=== PATIENT | female | born 1960 | race Caucasian/White ===

== ENCOUNTER 2017-09-24 11:16 | Inpatient (IN) | payer OTHER ==
[2017-09-24] MEDS ORDERED: SODIUM CHLORIDE 0.9% 2,500 ML IV STA (11:36)
[2017-09-24 11:51] LABS: BASOPHILS % (AUTO) 0.1 %; EOSINOPHILS % (AUTO) 0.4 %; HGB - HEMOGLOBIN 14.5 g/dL (12.0-16.0); LYMPHOCYTES # (AUTO) 0.1 10^3/uL (1.5-3.5); LYMPHOCYTES % (AUTO) 1.6 %; MEAN CORPUSCULAR HEMOGLOBIN 32.4 pg (27.0-31.0); MEAN CORPUSCULAR VOLUME 95.2 fL (81.0-99.0); MEAN PLATELET VOLUME 8.4 fL (7.9-10.8); MONOCYTES # (AUTO) 0.1 10^3/uL (0.0-1.0); MONOCYTES % (AUTO) 0.9 %; NEUTROPHILS # (AUTO) 5.5 10^3/uL (1.5-6.6); PLT - PLATELET COUNT 170 10^3/uL (130-450); RED BLOOD COUNT 4.49 10^6/uL (4.20-5.40); RED CELL DISTRIBUTION WIDTH 13.5 % (12.0-15.0); WHITE BLOOD COUNT 5.7 x10^3/uL (4.8-10.8)
[2017-09-24 12:00] LABS: ALBUMIN 4.3 g/dL (3.2-5.5); ALBUMIN/GLOBULIN RATIO 1.1 (1.0-2.2); CALCIUM 9.5 mg/dL (8.5-10.3); CREATININE 1.2 mg/dL (0.4-1.0); TOTAL PROTEIN 8.1 g/dL (6.7-8.2)
--- NOTE | 2017-09-24 12:40 | ED Physician Documentation ---
History of Present Illness - Stated complaint Stated Complaint: THROAT PX/VOMITING - Chief complaint Chief Complaint: Resp - Additonal information Additional information: hx from pt and SO 57 f sick for 5 days sore throat productive cough vomiting now with lethargy no fever no diarrhea no travel denies preg spouse with similar but milder sx normally quite healthy Review of Systems Constitutional: reports: Fatigue. denies: Fever Throat: reports: Sore throat Respiratory: reports: Dyspnea, Cough GI: reports: Abdominal Pain (from cough), Vomiting Musculoskeletal: reports: Back pain (from cough) Neurologic: reports: Generalized weakness, Altered mental status Endocrine: denies: Easy bruising / bleeding Immunocompromised: denies: Immunocompromised PD PAST MEDICAL HISTORY - Past Medical History Past Medical History: No - Past Surgical History Past Surgical History: Yes Ortho: Knee replacement - Allergies Allergies/Adverse Reactions: Allergies Allergy/AdvReac Type Severity Reaction Status Date / Time Sulfa (Sulfonamide Allergy Rash Verified 09/24/17 11:26 Antibiotics) - Social History Does the pt smoke?: No Smoking Status: Never smoker Does the pt drink ETOH?: Yes ETOH Use: Wine Does the pt have substance abuse?: No - Immunizations Immunizations are current?: Yes PD ED PE NORMAL - Vitals Vital signs reviewed: Yes - General General: Alert and oriented X 3 - HEENT HEENT: PERRL - Neck Neck: Supple, no meningeal sign, Other (tender cervical adenopathy no sig pain with tracheal manip) - Cardiac Cardiac: RRR - Respiratory Respiratory: Other (dec iram, coarse cough, ronchi iram) - Abdomen Abdomen: Soft, Other (mild ) - Derm Derm: Normal color - Extremities Extremities: No deformity, No edema, No calf tenderness / cord - Neuro Neuro: Alert and oriented X 3, Other (but slow to respond and sleeps between questions) Eye Opening: Spontaneous Motor: Obeys Commands Verbal: Oriented GCS Score: 15 Results - Vitals Vitals: Vital Signs - 24 hr 09/24/17 09/24/17 09/24/17 11:21 11:36 12:06 Temperature 36.9 C Heart Rate 120 H 90 93 Respiratory 28 H 20 19 Rate Blood Pressure 99/76 104/70 94/73 O2 Saturation 90 L 95 95 09/24/17 09/24/17 09/24/17 12:30 13:00 13:30 Temperature Heart Rate 81 81 Respiratory 19 17 Rate Blood Pressure 97/60 101/75 115/61 O2 Saturation 96 97 09/24/17 09/24/17 09/24/17 14:08 14:30 15:00 Temperature 37.8 C H Heart Rate 85 87 Respiratory 20 22 Rate Blood Pressure 127/61 125/66 O2 Saturation 97 90 L 09/24/17 09/24/17 09/24/17 15:25 16:45 16:55 Temperature 39.6 C H Heart Rate 89 99 Respiratory 20 27 H Rate Blood Pressure 144/69 H O2 Saturation 90 L 88 L 09/24/17 17:30 Temperature Heart Rate 93 Respiratory 27 H Rate Blood Pressure 153/75 H O2 Saturation 95 Oxygen O2 Source Nasal cannula Oxygen Flow Rate 2 - Labs Labs: Microbiology 09/24/17 12:45 Respiratory Culture - Preliminary Sputum Laboratory Tests 09/24/17 09/24/17 09/24/17 00:30 11:35 11:35 WBC 5.7 RBC 4.49 Hgb 14.5 Hct 42.8 MCV 95.2 MCH 32.4 H MCHC 34.0 RDW 13.5 Plt Count 170 MPV 8.4 Neut # (Auto) 5.5 Lymph # (Auto) 0.1 L [place] # (Auto) 0.1 Eos # (Auto) 0.0 Baso # (Auto) 0.0 Absolute Nucleated RBC 0.00 Nucleated RBC % 0.0 Sodium 135 Potassium 4.0 Chloride 98 L Carbon Dioxide 27 Anion Gap 10.0 BUN 14 Creatinine 1.2 H Estimated GFR (MDRD) 46 L Glucose 179 H Lactic Acid Calcium 9.5 Total Bilirubin 1.0 AST 35 ALT 22 Alkaline Phosphatase 43 Total Protein 8.1 Albumin 4.3 Globulin 3.8 Albumin/Globulin Ratio 1.1 Lipase 38 Urine Color Urine Clarity Urine pH Ur Specific [place] Urine Protein Urine Glucose (UA) Urine Ketones Urine Occult Blood Urine Nitrite Urine Bilirubin Urine Urobilinogen Ur Leukocyte Esterase Urine RBC Urine WBC Ur Squamous Epith Cells Urine Bacteria Ur Microscopic Review Urine Culture Comments Group A Strep Rapid Negative 09/24/17 09/24/17 11:35 16:40 WBC RBC Hgb Hct MCV MCH MCHC RDW Plt Count MPV Neut # (Auto) Lymph # (Auto) [place] # (Auto) Eos # (Auto) Baso # (Auto) Absolute Nucleated RBC Nucleated RBC % Sodium Potassium Chloride Carbon Dioxide Anion Gap BUN Creatinine Estimated GFR (MDRD) Glucose Lactic Acid 1.5 Calcium Total Bilirubin AST ALT Alkaline Phosphatase Total Protein Albumin Globulin Albumin/Globulin Ratio Lipase Urine Color YELLOW Urine Clarity CLEAR Urine pH 6.0 Ur Specific [place] 1.010 Urine Protein NEGATIVE Urine Glucose (UA) NEGATIVE Urine Ketones NEGATIVE Urine Occult Blood TRACE-INTA Urine Nitrite NEGATIVE Urine Bilirubin NEGATIVE Urine Urobilinogen 0.2 (NORMAL) Ur Leukocyte Esterase SMALL H Urine RBC 0-5 Urine WBC 6-10 H Ur Squamous Epith Cells RARE Squamous Urine Bacteria Few Ur Microscopic Review INDICATED Urine Culture Comments INDICATED Group A Strep Rapid PD MEDICAL DECISION MAKING - ED course ED course: rpt exam after 30cc/kg fluid labs, pt still has not urinated CXR strep neg still very ill appearing, still ronchi and dec on pulm exam, still too weak to sit up without assist states he had similar sx and continued to worsen until he got ab even though his xray was also neg - then he promptly improved - certainly sounds like pna on exam -so started rocephin zmax also pt has hx wheezing and asthma so will try nebs after more IVF ab nebs etc pt still too weak to walk safely, hypoxic to 88 % with exertion, tachypneic to 30 and now febrile will not be able to dc will admit for presumed pna based on pulm exam and with same spoke to hospitalist at 1705 - Sepsis Event Vital Signs: Vital Signs - 24 hr 09/24/17 09/24/17 09/24/17 11:21 11:36 12:06 Temperature 36.9 C Heart Rate 120 H 90 93 Respiratory 28 H 20 19 Rate Blood Pressure 99/76 104/70 94/73 O2 Saturation 90 L 95 95 09/24/17 09/24/17 09/24/17 12:30 13:00 13:30 Temperature Heart Rate 81 81 Respiratory 19 17 Rate Blood Pressure 97/60 101/75 115/61 O2 Saturation 96 97 09/24/17 09/24/17 09/24/17 14:08 14:30 15:00 Temperature 37.8 C H Heart Rate 85 87 Respiratory 20 22 Rate Blood Pressure 127/61 125/66 O2 Saturation 97 90 L 09/24/17 09/24/17 09/24/17 15:25 16:45 16:55 Temperature 39.6 C H Heart Rate 89 99 Respiratory 20 27 H Rate Blood Pressure 144/69 H O2 Saturation 90 L 88 L 09/24/17 17:30 Temperature Heart Rate 93 Respiratory 27 H Rate Blood Pressure 153/75 H O2 Saturation 95 Oxygen O2 Source Nasal cannula Oxygen Flow Rate 2 Departure - Departure Disposition: 66 [facility] DC/Xfer Clinical Impression: Hypoxia, Weakness Pneumonia Qualifiers: Pneumonia type: due to unspecified organism Laterality: unspecified laterality Lung location: unspecified part of lung Qualified Code(s): J18.9 - Pneumonia, unspecified organism Fever Qualifiers: Fever type: unspecified Qualified Code(s): R50.9 - Fever, unspecified
--- NOTE | 2017-09-24 12:42 | XRAY Report ---
Procedure Date: 09/24/2017 Accession Number: [id number] / [id number] Procedure: XR - Chest 1 View X-Ray CPT Code: 35923 FULL RESULT: EXAM: CHEST RADIOGRAPHY EXAM DATE: 09/24/2017 12:08 PM. CLINICAL HISTORY: Hypoxia. Tachycardia. Lethargy. COMPARISON: None. TECHNIQUE: Upright AP view. FINDINGS: Lungs/Pleura: No focal opacities evident. No pleural effusion. No pneumothorax. Mediastinum: Within exam limitations, the cardiomediastinal contour is normal. Other: Prior distal left clavicle resection. Small bone island in the proximal right humeral shaft. IMPRESSION: Normal single view chest. RADIA
[2017-09-24] MEDS ORDERED: ALBUTEROL NEB 2.5 MG/3 ML INH STA ×2 (14:59→15:03)
[2017-09-24] MEDS ORDERED: AZITHROMYCIN 250 MG TABLET PO STA (14:59)
[2017-09-24] MEDS ORDERED: cefTRIAXone 1 GM in SODIUM CHLORIDE 0.9% MINIBAG 100 ML IV STA (15:00)
[2017-09-24 17:01] LABS: BILIRUBIN,URINE NEGATIVE (NEGATIVE); GLUCOSE, URINE (UA) NEGATIVE (NEGATIVE); KETONES,URINE (UA) NEGATIVE (NEGATIVE); LEUKOCYTE ESTERASE, URINE SMALL (NEGATIVE); NITRITE,URINE NEGATIVE (NEGATIVE); OCCULT BLOOD,URINE TRACE-INTA (NEGATIVE); PROTEIN,URINE NEGATIVE (NEGATIVE); UROBILINOGEN,URINE 0.2 (NORMAL) E.U./dL (NORMAL)
[2017-09-24 17:06] LABS: CLARITY,URINE CLEAR (CLEAR)
[2017-09-24 17:12] LABS: BACTERIA,URINE Few /HPF (None Seen); RBC,URINE 0-5 /HPF (0-5); SQUAMOUS EPITHELIAL CELL,UR RARE Squamous (<= Few)
[2017-09-24] MEDS ORDERED: ACETAMINOPHEN 1,000 MG/100 ML 100 ML IV STA (17:21)
[2017-09-24] MEDS ORDERED: TEMAZEPAM 15 MG CAPSULE PO PRN (17:53)
[2017-09-24] MEDS ORDERED: MORPHINE 2 MG/ML SYRINGE IVP PRN (17:53)
[2017-09-24] MEDS ORDERED: PROCHLORPERAZINE 10 MG/2 ML VIAL IVP PRN (17:53)
[2017-09-24] MEDS ORDERED: IPRATROPIUM/ALBUTEROL 3 ML NEB INH PRN (18:05)
[2017-09-24] MEDS: BENZOCAINE/MENTHOL LOZENGE MM PRN (19:20)
[2017-09-24] MEDS: guaiFENesin 600 MG TABLET PO SCH (19:20)
[2017-09-24] MEDS: D5NS W/20 MEQ KCL 1,000 ML IV SCH (19:21)
[2017-09-24] MEDS: LEVALBUTEROL 1.25 MG/3 ML NEB INH SCH (20:49)
--- NOTE | 2017-09-24 22:20 | HISTORY & PHYSICAL EXAMINATION ---
Chief Complaint - Chief Complaint Chief Complaint: Shortness of breath History of Present Illness - Admitted From Admitted From:: Emergency department - History Obtained From Records Reviewed: Yes History obtained from: Patient Exam Limitations: None - History of Present Illness HPI Comment/Other: Patient is a 57-year-old female with a past medical history significant for hypothyroidism and exercise-induced asthma who presented to the emergency department with a chief complaint of shortness of breath. The patient states that she was in her normal state of health until 09/19/2017 when she states she started feeling achy. She states that a few days earlier her was sick and was told he had a virus for which he received antibiotics. She states that over the week she progressed from feeling achy to having a cough with productive sputum to having a sore throat to getting nausea and chills. She states that although her improved she was not getting better. She states that her and her came to [facility] to their vacation home for the weekend. She states that all weekend she felt miserable. She states that she was weak could barely get out of bed. She states that she had nausea and vomiting. She states that her went back to [place] but she was so ill that she could not go back. She states that today she began experiencing shortness of breath and she got to a point where she could not breathe. She states that she was having wheezing, cough and increasing dyspnea. She states that she has never been admitted for an asthma exacerbation. She denies any chest pain, orthopnea, PND, increased lower extremity swelling. She states that at home she was having chills but did not take her temperature. She denies any abdominal pain, diarrhea, urinary urgency, urinary frequency or dysuria. She does admit to having decreased appetite. Patient denies any headaches, blurred vision, runny nose, dizziness, difficulty swallowing, palpitations, joint pain, joint swelling, back pain, neck stiffness , rashes, recent unintentional weight loss, night sweats or any focal neurologic deficits. On presentation to the emergency department the patient was initially afebrile but tachycardic with a heart rate of 120, borderline hypotensive with a blood pressure of 99/76 and tachypneic with respiratory distress. The patient was found to be hypoxic with oxygen saturation down to 90% on room air. While in the emergency department the patient developed a fever with a temperature of 39.6 and dropped her oxygen saturation down to 88%. The patient underwent routine lab work which showed no leukocytosis but slight lymphopenia and a creatinine of 1.2 with no previous baseline. The patient did appear to be significantly dehydrated and was given 4 L of IV fluid before she had any urine output. The patient had an influenza swab that was negative and a group A strep that was negative. The patient underwent a chest x-ray which was normal. The patient continued to have significant respiratory distress and was persistently hypoxic in the emergency department. She did appear to have wheezes on examination and perhaps had some asthma exacerbation. Given her hypoxia and borderline septic appearance the patient was admitted to the hospital for treatment of acute respiratory failure with hypoxia, asthma exacerbation and a clinical pneumonia. 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 Social History Notes: The patient lives in [place] and is originally from the [place] area. 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 She has a vacation home and [place] was [place] over the weekend. She has 1 daughter and a granddaughter. She lives with her . She does not smoke cigarettes. She drinks 1-2 glasses of wine a night. She denies any illicit drug use. - POLST Patient has POLST: No POLST Status: Full Code Meds/Allgy - Allergies Allergies/Adverse Reactions: Allergies Allergy/AdvReac Type Severity Reaction Status Date / Time Sulfa (Sulfonamide Allergy Rash Verified 09/24/17 11:26 Antibiotics) Review of Systems - Other Findings Other Findings: A comprehensive review of systems was performed the pertinent positives and negatives are stated above in the HPI and the remainder of the review of systems is negative. Exam - Vital Signs Reviewed Vital Signs: Yes Vital Signs: Vital Signs x48h Temp Pulse Pulse Resp BP BP Pulse Ox 09/24/17 20:51 90 20 09/24/17 19:31 37.2 C 07/02/18 18:45 38.9 C H 102 H 24 101/80 92 09/24/17 18:00 106 H 22 129/69 93 - Physical Exam General Appearance: positive: Alert, Moderate distress (Patient appears flushed , ill-appearing, tachypneic and very worn out.) Eyes Bilateral: positive: Normal inspection, PERRL, EOMI, No lid inflammation, Conjunctivae nml, No scleral icterus ENT: positive: ENT inspection nml, Pharynx nml, Dry mucous membranes. negative : Purulent nasal drainage, Pharyngeal erythema, Oral lesions Neck: positive: Nml inspection, Thyroid nml, No JVD, Trachea midline. negative : Thyromegaly, Lymphadenopathy (R), Lymphadenopathy (L), Stiff neck, Carotid bruit, Tracheal deviation Respiratory: positive: Chest non-tender, Wheezes (Scattered bilaterally throughout the lungs), Rhonchi (Rhonchi bilaterally at bases), Other ( Tachypneic with respiratory distress) Cardiovascular: positive: No murmur, No gallop, Tachycardia Peripheral Pulses: positive: 2+ Abdomen: positive: Non-tender, No organomegaly, Nml bowel sounds, No distention. negative: Guarding, Rebound, Hepatomegaly Back: positive: Nml inspection. negative: CVA tenderness (R), CVA tenderness (L ) Skin: positive: Color nml, No rash, Warm. negative: Cyanosis, Diaphoresis, Pallor Extremities: positive: Non-tender, Full ROM, Nml appearance, No pedal edema Neurologic/Psychiatric: positive: Oriented x3, CN's nml (2-12), Motor nml, Sensation nml, Mood/affect nml, Other (Appear to have generalized weakness) Conclusion/Plan - Problem List (1) Acute respiratory failure with hypoxia Conclusion/Plan: On presentation to the emergency department the patient was in acute respiratory distress with respiratory rate in the high 20s, tachycardia and was hypoxic down to as little as 88% on room air. The patient was using accessory muscles of breathing and spiked a fever while she was in the emergency department. The patient was very ill-appearing on presentation. Patient's chest x-ray did not show any evidence of pneumonia. She was very dehydrated and received several liters of IV fluid. The patient was found to have wheezing on examination along with rhonchi concerning for asthma exacerbation and pneumonia. The patient was placed on 2 L of oxygen with which oxygen saturation did improve up to 95%. Patient has acute respiratory failure with hypoxia likely secondary to a combination of asthma exacerbation and pneumonia. Although the patient's chest x-ray does not show pneumonia she clinically appears to have pneumonia given her fever, respiratory distress and rhonchi on examination. Plan: Patient will be placed on supplemental oxygen Patient will be given IV antibiotics with ceftriaxone and azithromycin Patient will be placed on Solu-Medrol 40 mg 3 times daily Patient will be placed on Xopenex 4 times daily We will monitor closely (2) Sepsis Conclusion/Plan: On presentation to the emergency department the patient appeared to be septic with fever of up to 38.9, tachycardia up to 120, respiratory distress with respiratory rate up to 28, hypoxia and dehydration with acute kidney injury. Although the patient's chest x-ray was negative for pneumonia she clinically appears to have pneumonia and this is the likely source of the patient's sepsis. Patient's lactic acid was normal. Plan: Aggressive hydration with IV fluids IV antibiotics with ceftriaxone and azithromycin to cover for community acquired pneumonia Supplemental oxygen Blood cultures Qualifiers: Sepsis type: sepsis due to unspecified organism Qualified Code(s): A41.9 - Sepsis, unspecified organism (3) CAP (community acquired pneumonia) Conclusion/Plan: Patient presented with acute respiratory failure with hypoxia and sepsis. Although patient's chest x-ray was negative on presentation she is febrile, tachycardic and had respiratory distress with use of accessory muscles of breathing and was tachypneic up to 28. Patient had rhonchi on examination of her lungs. Patient appears to clinically have community-acquired pneumonia Plan: IV antibiotics with ceftriaxone and azithromycin IV fluids Blood cultures pending Supplemental oxygen Repeat chest x-ray once patient is hydrated in the morning Qualifiers: Laterality: unspecified laterality Qualified Code(s): J18.9 - Pneumonia, unspecified organism (4) Asthma exacerbation Conclusion/Plan: Patient presented with acute respiratory failure with hypoxia and sepsis. The patient appears to have community acquired pneumonia which looks to be exacerbating asthma. The patient was wheezing on examination and was hypoxic. She had some mild relief with nebulizer treatment. Plan: Place on Xopenex 4 times daily Solu-Medrol IV 3 times daily Supplemental oxygen IV antibiotics for treatment of community acquired pneumonia Monitor closely Qualifiers: Asthma severity: mild Asthma persistence: intermittent Qualified Code(s) : J45.21 - Mild intermittent asthma with (acute) exacerbation (5) WILDER (acute kidney injury) Conclusion/Plan: We do not have a previous creatinine on the patient however assuming that she is healthy and previously had a normal creatinine level her creatinine is elevated at 1.2 on presentation. She appeared very dehydrated on examination. She did not make any urine until she received 4 L of IV fluid. She appears to have acute kidney injury secondary to sepsis. Plan: Give IV fluids Monitor creatinine Avoid nephrotoxic agents (6) Hyperglycemia Conclusion/Plan: Patient denies any history of diabetes or any family history of diabetes. The patient on presentation is hyperglycemic with a glucose of 179. Glucose may be elevated due to stress response or if the patient received steroids prior to the blood glucose check. For now we will get a hemoglobin A1c and if it is elevated then we will place her on glucose checks and possibly sliding scale insulin while she is hospitalized here. (7) Hypothyroidism Conclusion/Plan: Patient has history of hypothyroidism and is on Synthroid at home. The patient cannot remember her dose of Synthroid. We will have the pharmacy confirm her dose of Synthroid and then start her back on it once we have confirmed. Currently the patient appears to be stable, we will check a TSH in the morning. Qualifiers: Hypothyroidism type: unspecified Qualified Code(s): E03.9 - Hypothyroidism , unspecified - Lab Results Lab results reviewed: Yes Fish Bones: 09/24/17 11:35 09/24/17 11:35 Other Lab Results: Laboratory Results WBC 5.7 x10^3/uL (4.8-10.8) 09/24/17 11:35 RBC 4.49 10^6/uL (4.20-5.40) 09/24/17 11:35 Hgb 14.5 g/dL (12.0-16.0) 09/24/17 11:35 Hct 42.8 % (37.0-47.0) 09/24/17 11:35 MCV 95.2 fL (81.0-99.0) 09/24/17 11:35 MCH 32.4 pg (27.0-31.0) H 09/24/17 11:35 MCHC 34.0 g/dL (32.0-36.0) 09/24/17 11:35 RDW 13.5 % (12.0-15.0) 09/24/17 11:35 Plt Count 170 10^3/uL (130-450) 09/24/17 11:35 MPV 8.4 fL (7.9-10.8) 09/24/17 11:35 Neut # (Auto) 5.5 10^3/uL (1.5-6.6) 09/24/17 11:35 Lymph # (Auto) 0.1 10^3/uL (1.5-3.5) L 09/24/17 11:35 [place] # (Auto) 0.1 10^3/uL (0.0-1.0) 09/24/17 11:35 Eos # (Auto) 0.0 10^3/uL (0.0-0.7) 09/24/17 11:35 Baso # (Auto) 0.0 10^3/uL (0.0-0.1) 09/24/17 11:35 Absolute Nucleated RBC 0.00 x10^3/uL 09/24/17 11:35 Nucleated RBC % 0.0 /100WBC 09/24/17 11:35 Sodium 135 mmol/L (135-145) 09/24/17 11:35 Potassium 4.0 mmol/L (3.5-5.0) 09/24/17 11:35 Chloride 98 mmol/L (101-111) L 09/24/17 11:35 Carbon Dioxide 27 mmol/L (21-32) 09/24/17 11:35 Anion Gap 10.0 (6-13) 09/24/17 11:35 BUN 14 mg/dL (6-20) 09/24/17 11:35 Creatinine 1.2 mg/dL (0.4-1.0) H 09/24/17 11:35 Estimated GFR (MDRD) 46 (>89) L 09/24/17 11:35 Glucose 179 mg/dL (70-100) H 09/24/17 11:35 Lactic Acid 1.5 mmol/L (0.5-2.2) 09/24/17 11:35 Calcium 9.5 mg/dL (8.5-10.3) 09/24/17 11:35 Total Bilirubin 1.0 mg/dL (0.2-1.0) 09/24/17 11:35 AST 35 IU/L (10-42) 09/24/17 11:35 ALT 22 IU/L (10-60) 09/24/17 11:35 Alkaline Phosphatase 43 IU/L (42-121) 09/24/17 11:35 Total Protein 8.1 g/dL (6.7-8.2) 09/24/17 11:35 Albumin 4.3 g/dL (3.2-5.5) 09/24/17 11:35 Globulin 3.8 g/dL (2.1-4.2) 09/24/17 11:35 Albumin/Globulin Ratio 1.1 (1.0-2.2) 09/24/17 11:35 Lipase 38 U/L (22-51) 09/24/17 11:35 Urine Color YELLOW 09/24/17 16:40 Urine Clarity CLEAR (CLEAR) 09/24/17 16:40 Urine pH 6.0 PH (5.0-7.5) 09/24/17 16:40 Ur Specific [place] 1.010 (1.002-1.030) 09/24/17 16:40 Urine Protein NEGATIVE mg/dL (NEGATIVE) 09/24/17 16:40 Urine Glucose (UA) NEGATIVE mg/dL (NEGATIVE) 09/24/17 16:40 Urine Ketones NEGATIVE mg/dL (NEGATIVE) 09/24/17 16:40 Urine Occult Blood TRACE-INTA (NEGATIVE) 09/24/17 16:40 Urine Nitrite NEGATIVE (NEGATIVE) 09/24/17 16:40 Urine Bilirubin NEGATIVE (NEGATIVE) 09/24/17 16:40 Urine Urobilinogen 0.2 (NORMAL) E.U./dL (NORMAL) 09/24/17 16:40 Ur Leukocyte Esterase SMALL (NEGATIVE) H 09/24/17 16:40 Urine RBC 0-5 /HPF (0-5) 09/24/17 16:40 Urine WBC 6-10 /HPF (0-5) H 09/24/17 16:40 Ur Squamous Epith Cells RARE Squamous (<= Few) 09/24/17 16:40 Urine Bacteria Few /HPF (None Seen) 09/24/17 16:40 Ur Microscopic Review INDICATED 09/24/17 16:40 Urine Culture Comments INDICATED 09/24/17 16:40 Influenza A (Rapid) Negative (Negative) 09/24/17 19:32 Influenza B (Rapid) Negative (Negative) 09/24/17 19:32 Group A Strep Rapid Negative (Negative) 09/24/17 00:30 - Diagnostic Imaging Results Diagnostic Imaging Results: positive: Final report reviewed Diagnostic Imaging Results Comments: Chest x-ray Impression: Normal single view chest Core Measures - Anticipated LOS I expect patient to be DC'd or transferred within 96 hours.: Yes - DVT/VTE - Prophylaxis VTE/DVT Prophylaxis med ordered at admit?: Yes
[2017-09-24] MEDS: methylPREDNISolone SUCCINATE 40 MG/ML VIAL IVP SCH (22:33)
[2017-09-24] MEDS: SODIUM CHLORIDE FLUSH 0.9% 10 ML SYRINGE IVP PRN (22:34)
[2017-09-24] MEDS: ACETAMINOPHEN 325 MG TABLET PO PRN (23:20)
[2017-09-25] MEDS: SODIUM CHLORIDE FLUSH 0.9% 10 ML SYRINGE IVP SCH ×3 (00:53→17:04)
[2017-09-25] MEDS: BENZOCAINE/MENTHOL LOZENGE MM PRN ×2 (01:02→11:48)
[2017-09-25] MEDS ORDERED: SODIUM CHLORIDE 0.9% 1,000 ML IV ONE (01:08)
[2017-09-25] MEDS: ACETAMINOPHEN 325 MG TABLET PO PRN ×2 (04:35→11:48)
[2017-09-25 06:03] LABS: BASOPHILS % (AUTO) 0.2 %; HGB - HEMOGLOBIN 12.7 g/dL (12.0-16.0); LYMPHOCYTES # (AUTO) 0.1 10^3/uL (1.5-3.5); LYMPHOCYTES % (AUTO) 1.3 %; MEAN CORPUSCULAR HEMOGLOBIN 32.5 pg (27.0-31.0); MEAN CORPUSCULAR HGB CONC 33.8 g/dL (32.0-36.0); MEAN PLATELET VOLUME 8.5 fL (7.9-10.8); MONOCYTES # (AUTO) 0.2 10^3/uL (0.0-1.0); MONOCYTES % (AUTO) 2.6 %; NEUTROPHILS # (AUTO) 7.2 10^3/uL (1.5-6.6); NEUTROPHILS % (AUTO) 95.9 %; PLT - PLATELET COUNT 103 10^3/uL (130-450); RED CELL DISTRIBUTION WIDTH 13.5 % (12.0-15.0); WHITE BLOOD COUNT 7.5 x10^3/uL (4.8-10.8)
[2017-09-25 06:11] LABS: CREATININE 1.3 mg/dL (0.4-1.0); MAGNESIUM 1.3 mg/dL (1.7-2.8)
[2017-09-25 06:24] LABS: HB2 TOTAL 13.3 g/dL; HEMOGLOBIN A1C 0.45 g/dL; HEMOGLOBIN A1C % 5.2 % (4.6-6.2)
[2017-09-25] MEDS: methylPREDNISolone SUCCINATE 40 MG/ML VIAL IVP SCH ×3 (06:29→21:48)
[2017-09-25] MEDS: SODIUM CHLORIDE FLUSH 0.9% 10 ML SYRINGE IVP PRN (06:30)
[2017-09-25] MEDS: D5NS W/20 MEQ KCL 1,000 ML IV SCH (06:59)
[2017-09-25] MEDS: LEVALBUTEROL 1.25 MG/3 ML NEB INH SCH ×4 (07:29→21:55)
[2017-09-25] MEDS ORDERED: MAGNESIUM SULFATE 1 GM in SODIUM CHLORIDE 0.9% 50 ML IV SCH (08:00)
[2017-09-25] MEDS: MAGNESIUM SULFATE 2 GRAM 2 GM/50 ML BAG IV SCH ×2 (08:11→09:15)
[2017-09-25] MEDS ORDERED: POLYETHYLENE GLYCOL 3350 17 GM PACKET PO SCH (09:00)
--- NOTE | 2017-09-25 09:18 | XRAY Report ---
Procedure Date: 09/25/2017 Accession Number: [id number] / [id number] Procedure: XR - Chest 1 View X-Ray CPT Code: 22135 FULL RESULT: EXAM: Chest 1 View X-Ray DATE: 09/25/2017 9:08 AM CLINICAL HISTORY: F/U SOB, poss pneumonia COMPARISON: None. TECHNIQUE: Single view of the chest. FINDINGS: Lungs/Pleura: Left basilar infiltrate with trace effusion. No pneumothorax. Mediastinum: Within exam limitations, cardiomediastinal contour is normal. Other: None. IMPRESSION: New left basilar infiltrate and trace effusion. RADIA
[2017-09-25] MEDS: guaiFENesin 600 MG TABLET PO SCH (11:48)
[2017-09-25] MEDS: MAGNESIUM OXIDE 400 MG TABLET PO SCH (11:48)
[2017-09-25] MEDS: FAMOTIDINE 20 MG TABLET PO SCH (11:49)
[2017-09-25] MEDS ORDERED: LOPERAMIDE 2 MG CAPSULE PO PRN (12:54)
[2017-09-25] MEDS: AZITHROMYCIN INJ 500 MG in SODIUM CHLORIDE 0.9% 250 ML IV SCH (13:17)
--- NOTE | 2017-09-25 13:43 | PROVIDER PROGRESS NOTE ---
Subjective - Prog Note Date Prog Note Date: 09/25/17 Prog Note Time: 12:40 - Subjective Pt reports feeling: No change Subjective: Patient says she still feels very sick and does not feel any better than when she came in, however when asked specifically about her breathing admits that she is breathing much easier than she was when she was admitted. She is currently on 2 L/min of oxygen via nasal cannula. She denies any fevers, chills , shortness of breath, or chest pain, but says her throat is sore. Current Medications - Current Medications Current Medications: Active Medications Generic Name Dose Route Start Last Admin Trade Name Freq PRN Reason Stop Dose Admin Acetaminophen 650 mg 09/24/17 17:53 09/25/17 11:48 Tylenol PO 650 mg Q4HR PRN Administration Pain or Fever > 38C (100.4F) Albuterol/Ipratropium 3 ml 09/24/17 18:05 Duoneb INH Q4HR PRN Wheezing Famotidine 20 mg 09/25/17 09:00 09/25/17 11:49 Pepcid PO 20 mg DAILY UMA Administration Guaifenesin 600 mg 09/24/17 19:00 09/25/17 11:48 Mucinex PO 600 mg DAILY UMA Administration Potassium Chloride/Dextrose/Sod Cl 1,000 mls @ 80 mls/hr 09/24/17 18:00 09/25 13:17 IV 0 mls/hr .[id number] UMA Infusion Ceftriaxone Sodium 1 gm/ 100 mls @ 200 mls/hr 09/25/17 14:00 Sodium Chloride IV 1000 UMA Azithromycin 500 mg/ Sodium 250 mls @ 250 mls/hr 09/25/17 13:00 09/25/17 13: 17 Chloride IV 250 mls/hr DAILY UMA Administration Levalbuterol HCl 1.25 mg 09/24/17 21:00 09/25/17 10:57 Xopenex INH 1.25 mg QID UMA Administration Loperamide HCl 2 mg 09/25/17 12:54 09/25/17 13:17 Imodium PO 2 mg QID PRN Administration Diarrhea Magnesium Oxide 400 mg 09/25/17 08:00 09/25/17 11:48 Mag Ox PO 400 mg DAILYWM UMA Administration Methylprednisolone 40 mg 09/24/17 22:00 09/25/17 06:29 Solu-Medrol (40mg Vial) IVP 40 mg TID UMA Administration Morphine Sulfate 2 mg 09/24/17 17:53 Morphine IVP Q2H PRN Dyspnea Prochlorperazine Edisylate 10 mg 09/24/17 17:53 Compazine Inj IVP Q6HR PRN Nausea / Vomiting Sodium Chloride 10 ml 09/24/17 17:53 09/25/17 06:30 Normal Saline Flush 0.9% IVP 10 ml PRN PRN Administration NEEDED PER PROVIDER ORDERS Sodium Chloride 10 ml 09/25/17 01:00 09/25/17 07:26 Normal Saline Flush 0.9% IVP Not Given 0100,0900,1700 UMA Temazepam 15 mg 09/24/17 17:53 Restoril PO QPM PRN Insomnia Throat Lozenges 1 lozenge 09/24/17 19:07 09/25/17 11:48 Cepacol MM 1 lozenge Q2HR PRN Administration Throat pain Levothyroxine Sodium [Synthroid] 112 mcg PO QDAC 09/25/17 Liothyronine [Cytomel] 5 mcg PO QDAC 09/25/17 Objective - Vital Signs/Intake & Output Reviewed Vital Signs: Yes Vital Signs: Vital Signs x48h Temp Pulse Pulse Resp BP Pulse Ox 09/25/17 11:39 37.1 C 106 H 18 123/58 L 96 09/25/17 10:57 95 20 09/25/17 08:11 37.0 C 87 18 110/52 L 96 09/25/17 07:35 79 16 09/25/17 06:32 37.5 C 09/25/17 05:45 38.6 C H Intake & Output: Intake & Output 09/22/17 09/23/17 09/24/17 09/25/17 23:59 23:59 23:59 23:59 Intake Total 700 2672.001 Output Total 1 Balance 699 2672.001 - Objective General Appearance: positive: Mild distress, Lethargic Eyes Bilateral: positive: Normal inspection, PERRL, EOMI, No lid inflammation, Conjunctivae nml, No scleral icterus ENT: positive: ENT inspection nml, Pharynx nml, No signs of dehydration Neck: positive: Nml inspection, Thyroid nml, No JVD, Trachea midline. negative : Thyromegaly Respiratory: positive: Chest non-tender, No respiratory distress, Breath sounds nml. negative: Wheezes, Rales, Rhonchi Cardiovascular: positive: Regular rate & rhythm, No murmur, No gallop Abdomen: positive: Non-tender, No organomegaly, Nml bowel sounds, No distention. negative: Guarding, Rebound Back: positive: Nml inspection. negative: CVA tenderness (R), CVA tenderness (L ) Skin: positive: Color nml, No rash, Warm, Dry. negative: Cyanosis Extremities: positive: Non-tender, Full ROM, Nml appearance, No pedal edema Neurologic/Psychiatric: positive: Oriented x3, CN's nml (2-12), Motor nml, Sensation nml, Mood/affect nml - Lab Results Fish Bones: 09/25/17 05:48 09/25/17 05:48 Other Labs: Lab Results x24hrs 09/25/17 09/25/17 09/25/17 Range/Units 05:48 05:48 05:48 WBC (4.8-10.8) x10^3/uL RBC (4.20-5.40) 10^6/uL Hgb (12.0-16.0) g/dL Hct (37.0-47.0) % MCV (81.0-99.0) fL MCH (27.0-31.0) pg MCHC (32.0-36.0) g/dL RDW (12.0-15.0) % Plt Count (130-450) 10^3/uL MPV (7.9-10.8) fL Neut # (Auto) (1.5-6.6) 10^3/uL Lymph # (Auto) (1.5-3.5) 10^3/uL Holmes # (Auto) (0.0-1.0) 10^3/uL Eos # (Auto) (0.0-0.7) 10^3/uL Baso # (Auto) (0.0-0.1) 10^3/uL Absolute Nucleated RBC x10^3/uL Nucleated RBC % /100WBC Sodium (135-145) mmol/L Potassium (3.5-5.0) mmol/L Chloride (101-111) mmol/L Carbon Dioxide (21-32) mmol/L Anion Gap (6-13) BUN (6-20) mg/dL Creatinine (0.4-1.0) mg/dL Estimated GFR (MDRD) (>89) Glucose (70-100) mg/dL Glycated Hemoglobin 5.2 (4.6-6.2) % Estim Average Glucose 103 H (70-100) Lactic Acid < 0.3 L (0.5-2.2) mmol/L Calcium (8.5-10.3) mg/dL Magnesium (1.7-2.8) mg/dL TSH 0.38 (0.34-5.60) uIU/mL Influenza A (Rapid) (Negative) Influenza B (Rapid) (Negative) 09/25/17 09/25/17 09/24/17 Range/Units 05:48 05:48 19:32 WBC 7.5 (4.8-10.8) x10^3/uL RBC 3.90 L (4.20-5.40) 10^6/uL Hgb 12.7 (12.0-16.0) g/dL Hct 37.5 (37.0-47.0) % MCV 96.0 (81.0-99.0) fL MCH 32.5 H (27.0-31.0) pg MCHC 33.8 (32.0-36.0) g/dL RDW 13.5 (12.0-15.0) % Plt Count 103 L (130-450) 10^3/uL MPV 8.5 (7.9-10.8) fL Neut # (Auto) 7.2 H (1.5-6.6) 10^3/uL Lymph # (Auto) 0.1 L (1.5-3.5) 10^3/uL Holmes # (Auto) 0.2 (0.0-1.0) 10^3/uL Eos # (Auto) 0.0 (0.0-0.7) 10^3/uL Baso # (Auto) 0.0 (0.0-0.1) 10^3/uL Absolute Nucleated RBC 0.01 x10^3/uL Nucleated RBC % 0.1 /100WBC Sodium 134 L (135-145) mmol/L Potassium 4.0 (3.5-5.0) mmol/L Chloride 106 (101-111) mmol/L Carbon Dioxide 21 (21-32) mmol/L Anion Gap 7.0 (6-13) BUN 21 H (6-20) mg/dL Creatinine 1.3 H (0.4-1.0) mg/dL Estimated GFR (MDRD) 42 L (>89) Glucose 170 H (70-100) mg/dL Glycated Hemoglobin (4.6-6.2) % Estim Average Glucose (70-100) Lactic Acid (0.5-2.2) mmol/L Calcium 7.0 L (8.5-10.3) mg/dL Magnesium 1.3 L (1.7-2.8) mg/dL TSH (0.34-5.60) uIU/mL Influenza A (Rapid) Negative (Negative) Influenza B (Rapid) Negative (Negative) - Diagnostic Imaging Diagnostic Imaging Results: positive: Final report reviewed Diagnostic Imaging Comments: EXAM: CHEST RADIOGRAPHY EXAM DATE: 09/24/2017 12:08 PM. CLINICAL HISTORY: Hypoxia. Tachycardia. Lethargy. COMPARISON: None. TECHNIQUE: Upright AP view. FINDINGS: Lungs/Pleura: No focal opacities evident. No pleural effusion. No pneumothorax. Mediastinum: Within exam limitations, the cardiomediastinal contour is normal. Other: Prior distal left clavicle resection. Small bone island in the proximal right humeral shaft. IMPRESSION: Normal single view chest. EXAM: Chest 1 View X-Ray DATE: 09/25/2017 9:08 AM CLINICAL HISTORY: F/U SOB, poss pneumonia COMPARISON: None. TECHNIQUE: Single view of the chest. FINDINGS: Lungs/Pleura: Left basilar infiltrate with trace effusion. No pneumothorax. Mediastinum: Within exam limitations, cardiomediastinal contour is normal. Other: None. IMPRESSION: New left basilar infiltrate and trace effusion. ABX Reporting Has patient been on IV antibiotics over the past 48 hours?: Yes Assessment/Plan - Problem List (1) Acute respiratory failure with hypoxia Impression: The patient is breathing easier at this time, and has respiratory rate of 16 with oxygen saturation of 97% on 2 L of supplemental oxygen. Continue with supplemental oxygen, antibiotics, and bronchodilators. (2) CAP (community acquired pneumonia) Impression: Although the patient's chest x-ray was initially negative on presentation to the emergency department she was extremely dehydrated and required 4 L of fluid before she even began to have urine output. Today there is a left basilar infiltrate which was not seen on admission. We will continue with antibiotics for community-acquired pneumonia. Qualifiers: Laterality: unspecified laterality Qualified Code(s): J18.9 - Pneumonia, unspecified organism (3) WILDER (acute kidney injury) Impression: The patient's creatinine on admission was 1.2 and went up to 1.3 today. Her BUN also went up despite receiving all of the fluids that she did receive yesterday on admission. We will continue with fluids and will monitor the patient's renal function daily. (4) Hyperglycemia Impression: The patient's glucose was elevated on admission but this appears to be a stress reaction to her ill state. Her glycollated hemoglobin is 5.2. (5) Hypothyroidism Impression: The patient is on Synthroid at home and her TSH was checked on admission; this was low normal at 0.38. Continue present care/dosing. Qualifiers: Hypothyroidism type: unspecified Qualified Code(s): E03.9 - Hypothyroidism , unspecified (6) Sepsis Impression: At this time the patient's lactic acid is less than 0.3, she is normotensive and she is not tachycardic. There is no evidence of sepsis at this time. Continue present care. Qualifiers: Sepsis type: sepsis due to unspecified organism Qualified Code(s): A41.9 - Sepsis, unspecified organism (7) Hypomagnesemia Impression: The patient's magnesium level was 1.3 at this morning. We are correcting with IV magnesium and oral magnesium. We will recheck in the morning.
[2017-09-25] MEDS: cefTRIAXone 1 GM in SODIUM CHLORIDE 0.9% MINIBAG 100 ML IV SCH (14:46)
[2017-09-26] MEDS: D5NS W/20 MEQ KCL 1,000 ML IV SCH ×2 (00:16→14:30)
[2017-09-26] MEDS: SODIUM CHLORIDE FLUSH 0.9% 10 ML SYRINGE IVP SCH ×3 (00:17→15:55)
[2017-09-26] MEDS: ACETAMINOPHEN 325 MG TABLET PO PRN ×3 (00:31→15:55)
[2017-09-26] MEDS: methylPREDNISolone SUCCINATE 40 MG/ML VIAL IVP SCH ×3 (06:02→22:01)
[2017-09-26 06:26] LABS: BASOPHILS % (AUTO) 0.4 %; HGB - HEMOGLOBIN 11.3 g/dL (12.0-16.0); LYMPHOCYTES # (AUTO) 0.5 10^3/uL (1.5-3.5); LYMPHOCYTES % (AUTO) 6.7 %; MEAN CORPUSCULAR HEMOGLOBIN 32.6 pg (27.0-31.0); MEAN CORPUSCULAR HGB CONC 33.6 g/dL (32.0-36.0); MEAN CORPUSCULAR VOLUME 96.8 fL (81.0-99.0); MEAN PLATELET VOLUME 8.6 fL (7.9-10.8); MONOCYTES # (AUTO) 0.2 10^3/uL (0.0-1.0); MONOCYTES % (AUTO) 2.9 %; NEUTROPHILS # (AUTO) 7.1 10^3/uL (1.5-6.6); PLT - PLATELET COUNT 82 10^3/uL (130-450); RED BLOOD COUNT 3.47 10^6/uL (4.20-5.40); RED CELL DISTRIBUTION WIDTH 13.9 % (12.0-15.0); WHITE BLOOD COUNT 7.9 x10^3/uL (4.8-10.8)
[2017-09-26 06:38] LABS: CALCIUM 7.2 mg/dL (8.5-10.3); CREATININE 0.8 mg/dL (0.4-1.0); MAGNESIUM 2.4 mg/dL (1.7-2.8)
[2017-09-26] MEDS: ALBUTEROL NEB 2.5 MG/3 ML INH PRN ×2 (08:24→12:34)
[2017-09-26] MEDS: MAGNESIUM OXIDE 400 MG TABLET PO SCH (09:43)
[2017-09-26] MEDS: guaiFENesin 600 MG TABLET PO SCH (09:43)
[2017-09-26] MEDS: FAMOTIDINE 20 MG TABLET PO SCH (09:43)
[2017-09-26] MEDS: AZITHROMYCIN INJ 500 MG in SODIUM CHLORIDE 0.9% 250 ML IV SCH (09:44)
[2017-09-26] MEDS: cefTRIAXone 1 GM in SODIUM CHLORIDE 0.9% MINIBAG 100 ML IV SCH (10:50)
--- NOTE | 2017-09-26 14:16 | PROVIDER PROGRESS NOTE ---
Subjective - Prog Note Date Prog Note Date: 09/26/17 Prog Note Time: 12:35 - Subjective Pt reports feeling: Improved Subjective: The patient feels much improved today. She is much more mentally aware, stronger, and less short of breath. She has been resting on room air without any significant dyspnea, and denies any fevers, chills, chest pain, or other new problems. Current Medications - Current Medications Current Medications: Active Medications Generic Name Dose Route Start Last Admin Trade Name Freq PRN Reason Stop Dose Admin Acetaminophen 650 mg 09/24/17 17:53 09/26/17 06:05 Tylenol PO 650 mg Q4HR PRN Administration Pain or Fever > 38C (100.4F) Albuterol 2.5 mg 09/26/17 00:02 09/26/17 12:34 INH 2.5 mg RTQ4H PRN Administration Wheezing Famotidine 20 mg 09/25/17 09:00 09/26/17 09:43 Pepcid PO 20 mg DAILY UMA Administration Guaifenesin 600 mg 09/24/17 19:00 09/26/17 09:43 Mucinex PO 600 mg DAILY UMA Administration Potassium Chloride/Dextrose/Sod Cl 1,000 mls @ 80 mls/hr 09/24/17 18:00 09/26 11:20 IV 80 mls/hr .[id number] UMA Infusion Ceftriaxone Sodium 1 gm/ 100 mls @ 200 mls/hr 09/25/17 14:00 09/26/17 11:29 Sodium Chloride IV Infused 1000 UMA Infusion Azithromycin 500 mg/ Sodium 250 mls @ 250 mls/hr 09/25/17 13:00 09/26/17 10: 45 Chloride IV Infused DAILY UMA Infusion Loperamide HCl 2 mg 09/25/17 12:54 09/25/17 13:17 Imodium PO 2 mg QID PRN Administration Diarrhea Magnesium Oxide 400 mg 09/25/17 08:00 09/26/17 09:43 Mag Ox PO 400 mg DAILYWM UMA Administration Methylprednisolone 40 mg 09/24/17 22:00 09/26/17 06:02 Solu-Medrol (40mg Vial) IVP 40 mg TID UMA Administration Morphine Sulfate 2 mg 09/24/17 17:53 Morphine IVP Q2H PRN Dyspnea Prochlorperazine Edisylate 10 mg 09/24/17 17:53 Compazine Inj IVP Q6HR PRN Nausea / Vomiting Sodium Chloride 10 ml 09/24/17 17:53 09/25/17 06:30 Normal Saline Flush 0.9% IVP 10 ml PRN PRN Administration NEEDED PER PROVIDER ORDERS Sodium Chloride 10 ml 09/25/17 01:00 09/26/17 09:44 Normal Saline Flush 0.9% IVP Not Given 0100,0900,1700 UMA Temazepam 15 mg 09/24/17 17:53 Restoril PO QPM PRN Insomnia Throat Lozenges 1 lozenge 09/24/17 19:07 09/25/17 11:48 Cepacol MM 1 lozenge Q2HR PRN Administration Throat pain Levothyroxine Sodium [Synthroid] 112 mcg PO QDAC 09/25/17 Liothyronine [Cytomel] 5 mcg PO QDAC 09/25/17 Objective - Vital Signs/Intake & Output Reviewed Vital Signs: Yes Vital Signs: Vital Signs x48h Temp Pulse Pulse Resp BP Pulse Ox 09/26/17 13:00 36.5 C 93 16 125/75 96 09/26/17 12:34 82 18 09/26/17 08:24 93 18 09/26/17 07:48 36.2 C L 75 16 108/66 96 Intake & Output: Intake & Output 09/23/17 09/24/17 09/25/17 09/26/17 23:59 23:59 23:59 23:59 Intake Total 700 4700.667 1906.667 Output Total 1 Balance 699 4700.667 1906.667 - Objective General Appearance: positive: No acute distress, Alert, Other (The patient is more alert and aware today) Eyes Bilateral: positive: Normal inspection, PERRL, EOMI, No lid inflammation, Conjunctivae nml, No scleral icterus ENT: positive: ENT inspection nml, Pharynx nml, No signs of dehydration Neck: positive: Nml inspection, Thyroid nml, No JVD, Trachea midline. negative : Thyromegaly Respiratory: positive: Chest non-tender, No respiratory distress, Rales, Rhonchi. negative: Wheezes Cardiovascular: positive: Regular rate & rhythm, No murmur, No gallop Abdomen: positive: Non-tender, No organomegaly, Nml bowel sounds, No distention. negative: Guarding, Rebound Back: positive: Nml inspection. negative: CVA tenderness (R), CVA tenderness (L ) Skin: positive: Color nml, No rash, Warm, Dry. negative: Cyanosis Extremities: positive: Non-tender, Full ROM, Nml appearance, No pedal edema Neurologic/Psychiatric: positive: Oriented x3, CN's nml (2-12), Motor nml, Sensation nml, Mood/affect nml - Lab Results Fish Bones: 09/26/17 06:23 09/26/17 06:23 Other Labs: Lab Results x24hrs 09/26/17 09/26/17 Range/Units 06:23 06:23 WBC 7.9 (4.8-10.8) x10^3/uL RBC 3.47 L (4.20-5.40) 10^6/uL Hgb 11.3 L (12.0-16.0) g/dL Hct 33.6 L (37.0-47.0) % MCV 96.8 (81.0-99.0) fL MCH 32.6 H (27.0-31.0) pg MCHC 33.6 (32.0-36.0) g/dL RDW 13.9 (12.0-15.0) % Plt Count 82 L (130-450) 10^3/uL MPV 8.6 (7.9-10.8) fL Neut # (Auto) 7.1 H (1.5-6.6) 10^3/uL Lymph # (Auto) 0.5 L (1.5-3.5) 10^3/uL Potter # (Auto) 0.2 (0.0-1.0) 10^3/uL Eos # (Auto) 0.0 (0.0-0.7) 10^3/uL Baso # (Auto) 0.0 (0.0-0.1) 10^3/uL Absolute Nucleated RBC 0.00 x10^3/uL Nucleated RBC % 0.0 /100WBC Sodium 134 L (135-145) mmol/L Potassium 4.5 (3.5-5.0) mmol/L Chloride 108 (101-111) mmol/L Carbon Dioxide 22 (21-32) mmol/L Anion Gap 4.0 L (6-13) BUN 13 (6-20) mg/dL Creatinine 0.8 (0.4-1.0) mg/dL Estimated GFR (MDRD) 73 L (>89) Glucose 194 H (70-100) mg/dL Calcium 7.2 L (8.5-10.3) mg/dL Magnesium 2.4 (1.7-2.8) mg/dL - Diagnostic Imaging Diagnostic Imaging Results: positive: Final report reviewed Diagnostic Imaging Comments: EXAM: CHEST RADIOGRAPHY EXAM DATE: 09/24/2017 12:08 PM. CLINICAL HISTORY: Hypoxia. Tachycardia. Lethargy. COMPARISON: None. TECHNIQUE: Upright AP view. FINDINGS: Lungs/Pleura: No focal opacities evident. No pleural effusion. No pneumothorax. Mediastinum: Within exam limitations, the cardiomediastinal contour is normal. Other: Prior distal left clavicle resection. Small bone island in the proximal right humeral shaft. IMPRESSION: Normal single view chest. EXAM: Chest 1 View X-Ray DATE: 09/25/2017 9:08 AM CLINICAL HISTORY: F/U SOB, poss pneumonia COMPARISON: None. TECHNIQUE: Single view of the chest. FINDINGS: Lungs/Pleura: Left basilar infiltrate with trace effusion. No pneumothorax. Mediastinum: Within exam limitations, cardiomediastinal contour is normal. Other: None. IMPRESSION: New left basilar infiltrate and trace effusion. ABX Reporting Has patient been on IV antibiotics over the past 48 hours?: Yes Assessment/Plan - Problem List (1) Acute respiratory failure with hypoxia Impression: The patient is breathing easier at this time, and had respiratory rate of 16 with oxygen saturation of 93% on room air for about 45 minutes. Continue with supplemental oxygen, antibiotics, and bronchodilators. The patient is improving rapidly at this time. If she is able to tolerate room air for greater than an hour tomorrow we will consider discharging her home. (2) CAP (community acquired pneumonia) Impression: We are treating the patient was ceftriaxone and azithromycin for community- acquired pneumonia. She is showing significant clinical improvement, will recheck chest x-rays tomorrow. Qualifiers: Laterality: unspecified laterality Qualified Code(s): J18.9 - Pneumonia, unspecified organism (3) WILDER (acute kidney injury) Impression: Resolved. The patient was extremely dehydrated on admission with a creatinine greater than 3. Her creatinine has come down steadily to 0.8 today. Continue present care. (4) Hyperglycemia Impression: The patient's glucose was elevated on admission but this appears to be a stress reaction to her ill state. Her glycollated hemoglobin is 5.2. (5) Hypothyroidism Impression: The patient is on Synthroid at home and her TSH was checked on admission; this was low normal at 0.38. Continue present care/dosing. Qualifiers: Hypothyroidism type: unspecified Qualified Code(s): E03.9 - Hypothyroidism , unspecified (6) Sepsis Impression: Resolved. Qualifiers: Sepsis type: sepsis due to unspecified organism Qualified Code(s): A41.9 - Sepsis, unspecified organism (7) Hypomagnesemia Impression: Corrected. Magnesium 2.4 today.
[2017-09-27] MEDS: SODIUM CHLORIDE FLUSH 0.9% 10 ML SYRINGE IVP SCH ×4 (00:09→23:18)
[2017-09-27] MEDS: D5NS W/20 MEQ KCL 1,000 ML IV SCH ×2 (02:17→14:25)
[2017-09-27 05:03] LABS: HGB - HEMOGLOBIN 11.1 g/dL (12.0-16.0); LYMPHOCYTES # (AUTO) 0.9 10^3/uL (1.5-3.5); LYMPHOCYTES % (AUTO) 12.7 %; MEAN CORPUSCULAR HEMOGLOBIN 32.5 pg (27.0-31.0); MEAN CORPUSCULAR HGB CONC 33.8 g/dL (32.0-36.0); MEAN CORPUSCULAR VOLUME 95.9 fL (81.0-99.0); MEAN PLATELET VOLUME 9.5 fL (7.9-10.8); MONOCYTES # (AUTO) 0.2 10^3/uL (0.0-1.0); MONOCYTES % (AUTO) 3.5 %; NEUTROPHILS # (AUTO) 5.9 10^3/uL (1.5-6.6); NEUTROPHILS % (AUTO) 83.8 %; PLT - PLATELET COUNT 83 10^3/uL (130-450); RED BLOOD COUNT 3.41 10^6/uL (4.20-5.40); RED CELL DISTRIBUTION WIDTH 14.1 % (12.0-15.0); WHITE BLOOD COUNT 7.1 x10^3/uL (4.8-10.8)
[2017-09-27 05:08] LABS: CALCIUM 7.5 mg/dL (8.5-10.3); CREATININE 0.6 mg/dL (0.4-1.0); MAGNESIUM 2.3 mg/dL (1.7-2.8)
[2017-09-27] MEDS: methylPREDNISolone SUCCINATE 40 MG/ML VIAL IVP SCH ×2 (05:38→13:43)
--- NOTE | 2017-09-27 07:07 | XRAY Report ---
Procedure Date: 09/27/2017 Accession Number: [id number] / [id number] Procedure: XR - Chest 1 View X-Ray CPT Code: 67320 FULL RESULT: EXAM: CHEST RADIOGRAPHY EXAM DATE: 09/27/2017 06:30 AM. CLINICAL HISTORY: Reassess community-acquired pneumonia. COMPARISON: 09/25/2017. 09/24/2017. TECHNIQUE: 1 view. FINDINGS: Lungs/Pleura: Slight progression of left greater than right lower lobe airspace consolidation. No vascular congestion. No pneumothorax. Mediastinum: Heart size upper normal. Aorta is tortuous. Other: None. IMPRESSION: 1. Slight progression of left greater than right lower lobe airspace consolidation. RADIA
[2017-09-27] MEDS: ALBUTEROL NEB 2.5 MG/3 ML INH PRN ×3 (07:39→13:07)
[2017-09-27] MEDS: FAMOTIDINE 20 MG TABLET PO SCH (09:11)
[2017-09-27] MEDS: guaiFENesin 600 MG TABLET PO SCH (09:11)
[2017-09-27] MEDS: MAGNESIUM OXIDE 400 MG TABLET PO SCH (09:11)
[2017-09-27] MEDS: AZITHROMYCIN INJ 500 MG in SODIUM CHLORIDE 0.9% 250 ML IV SCH (09:12)
[2017-09-27] MEDS: cefTRIAXone 1 GM in SODIUM CHLORIDE 0.9% MINIBAG 100 ML IV SCH (10:12)
--- NOTE | 2017-09-27 10:50 | PROVIDER PROGRESS NOTE ---
Subjective - Prog Note Date Prog Note Date: 09/27/17 Prog Note Time: 10:48 - Subjective Pt reports feeling: Improved Subjective: Patient continues to steadily improve daily. She appears to be very comfortable at rest on room air but does get short of breath when she takes off her oxygen to go to the bathroom. I asked respiratory therapy to work with her off of oxygen and the lowest she got was 93% oxygen saturation; her highest heart rate during that time was 120. She walked several hundred feet but then became tired and had to go back to bed. She denies any fevers, chills, chest pain, nausea, or vomiting. Current Medications - Current Medications Current Medications: Active Medications Generic Name Dose Route Start Last Admin Trade Name Freq PRN Reason Stop Dose Admin Acetaminophen 650 mg 09/24/17 17:53 09/26/17 15:55 Tylenol PO 650 mg Q4HR PRN Administration Pain or Fever > 38C (100.4F) Albuterol 2.5 mg 09/26/17 00:02 09/27/17 08:44 INH 2.5 mg RTQ4H PRN Administration Wheezing Famotidine 20 mg 09/25/17 09:00 09/27/17 09:11 Pepcid PO 20 mg DAILY UMA Administration Guaifenesin 600 mg 09/24/17 19:00 09/27/17 09:11 Mucinex PO 600 mg DAILY UMA Administration Guaifenesin 400 mg 09/27/17 14:00 Robitussin Liquid PO TID UMA Potassium Chloride/Dextrose/Sod Cl 1,000 mls @ 80 mls/hr 09/24/17 18:00 09/27 02:17 IV 80 mls/hr .[id number] UMA Administration Ceftriaxone Sodium 1 gm/ 100 mls @ 200 mls/hr 09/25/17 14:00 09/27/17 10:48 Sodium Chloride IV Infused 1000 UMA Infusion Azithromycin 500 mg/ Sodium 250 mls @ 250 mls/hr 09/25/17 13:00 09/27/17 10: 15 Chloride IV Infused DAILY UMA Infusion Loperamide HCl 2 mg 09/25/17 12:54 09/25/17 13:17 Imodium PO 2 mg QID PRN Administration Diarrhea Magnesium Oxide 400 mg 09/25/17 08:00 09/27/17 09:11 Mag Ox PO 400 mg DAILYWM UMA Administration Methylprednisolone 40 mg 09/24/17 22:00 09/27/17 05:38 Solu-Medrol (40mg Vial) IVP 40 mg TID UMA Administration Morphine Sulfate 2 mg 09/24/17 17:53 Morphine IVP Q2H PRN Dyspnea Prochlorperazine Edisylate 10 mg 09/24/17 17:53 Compazine Inj IVP Q6HR PRN Nausea / Vomiting Sodium Chloride 10 ml 09/24/17 17:53 09/25/17 06:30 Normal Saline Flush 0.9% IVP 10 ml PRN PRN Administration NEEDED PER PROVIDER ORDERS Sodium Chloride 10 ml 09/25/17 01:00 09/27/17 09:17 Normal Saline Flush 0.9% IVP Not Given 0100,0900,1700 UMA Temazepam 15 mg 09/24/17 17:53 Restoril PO QPM PRN Insomnia Throat Lozenges 1 lozenge 09/24/17 19:07 09/25/17 11:48 Cepacol MM 1 lozenge Q2HR PRN Administration Throat pain Levothyroxine Sodium [Synthroid] 112 mcg PO QDAC 09/25/17 Liothyronine [Cytomel] 5 mcg PO QDAC 09/25/17 Objective - Vital Signs/Intake & Output Reviewed Vital Signs: Yes Vital Signs: Vital Signs x48h Temp Pulse Pulse Resp BP Pulse Ox 09/27/17 09:05 120 H 09/27/17 08:43 85 20 09/27/17 08:08 36.3 C L 53 L 20 148/79 H 96 09/27/17 05:00 36.6 C 58 L 16 138/86 H 95 Intake & Output: Intake & Output 09/24/17 09/25/17 09/26/17 09/27/17 23:59 23:59 23:59 23:59 Intake Total 700 4700.667 3170.000 1312.667 Output Total 1 Balance 699 4700.667 3170.000 1312.667 - Objective General Appearance: positive: No acute distress, Alert Eyes Bilateral: positive: Normal inspection, PERRL, EOMI, No lid inflammation, Conjunctivae nml, No scleral icterus ENT: positive: ENT inspection nml, Pharynx nml, No signs of dehydration Neck: positive: Nml inspection, Thyroid nml, No JVD, Trachea midline. negative : Thyromegaly Respiratory: positive: Chest non-tender, No respiratory distress, Breath sounds nml. negative: Wheezes, Rales, Rhonchi Cardiovascular: positive: Regular rate & rhythm, No murmur, No gallop Abdomen: positive: Non-tender, No organomegaly, Nml bowel sounds, No distention. negative: Guarding, Rebound Back: positive: Nml inspection. negative: CVA tenderness (R), CVA tenderness (L ) Skin: positive: Color nml, No rash, Warm, Dry. negative: Cyanosis Extremities: positive: Non-tender, Full ROM, Nml appearance, No pedal edema Neurologic/Psychiatric: positive: Oriented x3, CN's nml (2-12), Motor nml, Sensation nml, Mood/affect nml - Lab Results Fish Bones: 09/27/17 04:40 09/27/17 04:40 Other Labs: Lab Results x24hrs 09/27/17 09/27/17 Range/Units 04:40 04:40 WBC 7.1 (4.8-10.8) x10^3/uL RBC 3.41 L (4.20-5.40) 10^6/uL Hgb 11.1 L (12.0-16.0) g/dL Hct 32.7 L (37.0-47.0) % MCV 95.9 (81.0-99.0) fL MCH 32.5 H (27.0-31.0) pg MCHC 33.8 (32.0-36.0) g/dL RDW 14.1 (12.0-15.0) % Plt Count 83 L (130-450) 10^3/uL MPV 9.5 (7.9-10.8) fL Neut # (Auto) 5.9 (1.5-6.6) 10^3/uL Lymph # (Auto) 0.9 L (1.5-3.5) 10^3/uL [place] # (Auto) 0.2 (0.0-1.0) 10^3/uL Eos # (Auto) 0.0 (0.0-0.7) 10^3/uL Baso # (Auto) 0.0 (0.0-0.1) 10^3/uL Absolute Nucleated RBC 0.01 x10^3/uL Nucleated RBC % 0.2 /100WBC Sodium 135 (135-145) mmol/L Potassium 4.6 (3.5-5.0) mmol/L Chloride 108 (101-111) mmol/L Carbon Dioxide 21 (21-32) mmol/L Anion Gap 6.0 (6-13) BUN 13 (6-20) mg/dL Creatinine 0.6 (0.4-1.0) mg/dL Estimated GFR (MDRD) 102 (>89) Glucose 227 H (70-100) mg/dL Calcium 7.5 L (8.5-10.3) mg/dL Magnesium 2.3 (1.7-2.8) mg/dL - Diagnostic Imaging Diagnostic Imaging Results: positive: Final report reviewed Diagnostic Imaging Comments: EXAM: CHEST RADIOGRAPHY EXAM DATE: 09/24/2017 12:08 PM. CLINICAL HISTORY: Hypoxia. Tachycardia. Lethargy. COMPARISON: None. TECHNIQUE: Upright AP view. FINDINGS: Lungs/Pleura: No focal opacities evident. No pleural effusion. No pneumothorax. Mediastinum: Within exam limitations, the cardiomediastinal contour is normal. Other: Prior distal left clavicle resection. Small bone island in the proximal right humeral shaft. IMPRESSION: Normal single view chest. EXAM: Chest 1 View X-Ray DATE: 09/25/2017 9:08 AM CLINICAL HISTORY: F/U SOB, poss pneumonia COMPARISON: None. TECHNIQUE: Single view of the chest. FINDINGS: Lungs/Pleura: Left basilar infiltrate with trace effusion. No pneumothorax. Mediastinum: Within exam limitations, cardiomediastinal contour is normal. Other: None. IMPRESSION: New left basilar infiltrate and trace effusion. EXAM: CHEST RADIOGRAPHY EXAM DATE: 09/27/2017 06:30 AM. CLINICAL HISTORY: Reassess community-acquired pneumonia. COMPARISON: 09/25/2017. 09/24/2017. TECHNIQUE: 1 view. FINDINGS: Lungs/Pleura: Slight progression of left greater than right lower lobe airspace consolidation. No vascular congestion. No pneumothorax. Mediastinum: Heart size upper normal. Aorta is tortuous. Other: None. IMPRESSION: 1. Slight progression of left greater than right lower lobe airspace consolidation. ABX Reporting Has patient been on IV antibiotics over the past 48 hours?: Yes Assessment/Plan - Problem List (1) Acute respiratory failure with hypoxia Impression: The patient has improved significantly from a respiratory status and was able to ambulate several 100 feet on room air with her oxygen saturation being down to 93% at its lowest. The patient is rapidly improving but still requires supplemental oxygen most of the time. I believe it will be prudent to keep her one more night and discharge her tomorrow assuming there are no new issues. I will change her antibiotics to Levaquin today in anticipation of discharge tomorrow. (2) CAP (community acquired pneumonia) Impression: Patient's chest x-ray shows a slight worsening of the left-sided infiltrate but clinically the patient shows improvement. We will be discharging the patient home on Levaquin. Qualifiers: Laterality: unspecified laterality Qualified Code(s): J18.9 - Pneumonia, unspecified organism (3) WILDER (acute kidney injury) Impression: Resolved. The patient's creatinine initially was greater than 3 and is down to 0.6 today. Continue present care. (4) Hyperglycemia Impression: The patient's glucose was elevated on admission but this appears to be a stress reaction to her ill state. Her glycollated hemoglobin is 5.2. (5) Hypothyroidism Impression: The patient is on Synthroid at home and her TSH was checked on admission; this was low normal at 0.38. Continue present care/dosing. Qualifiers: Hypothyroidism type: unspecified Qualified Code(s): E03.9 - Hypothyroidism , unspecified (6) Sepsis Impression: Resolved. Qualifiers: Sepsis type: sepsis due to unspecified organism Qualified Code(s): A41.9 - Sepsis, unspecified organism (7) Hypomagnesemia Impression: Corrected. Magnesium 2.3 today.
[2017-09-27] MEDS: guaiFENesin 100 MG/5 ML UDC PO SCH ×2 (13:33→22:01)
[2017-09-27 14:04] LABS: BILIRUBIN,URINE NEGATIVE (NEGATIVE); GLUCOSE, URINE (UA) 500 mg/dL (NEGATIVE); KETONES,URINE (UA) NEGATIVE (NEGATIVE); LEUKOCYTE ESTERASE, URINE NEGATIVE (NEGATIVE); NITRITE,URINE NEGATIVE (NEGATIVE); OCCULT BLOOD,URINE TRACE-INTA (NEGATIVE); PROTEIN,URINE NEGATIVE (NEGATIVE); UROBILINOGEN,URINE 0.2 (NORMAL) E.U./dL (NORMAL)
[2017-09-27 14:28] LABS: CLARITY,URINE CLEAR (CLEAR)
[2017-09-27 14:45] LABS: BACTERIA,URINE Few /HPF (None Seen); EPITHELIAL CELLS,UR FEW Renal Tubular /HPF (<= Few); RBC,URINE 0-5 /HPF (0-5); SQUAMOUS EPITHELIAL CELL,UR FEW Squamous (<= Few)
[2017-09-27] MEDS ORDERED: SODIUM CHLORIDE 0.65% NASAL SPRAY NAS PRN (18:00)
[2017-09-27] MEDS: SODIUM CHLORIDE FLUSH 0.9% 10 ML SYRINGE IVP PRN (18:55)
[2017-09-27] MEDS: levoFLOXacin 250 MG TABLET PO SCH (18:55)
[2017-09-27] MEDS: predniSONE 20 MG TABLET PO SCH (22:00)
[2017-09-28] MEDS: guaiFENesin 100 MG/5 ML UDC PO SCH (05:29)
[2017-09-28] MEDS: MAGNESIUM OXIDE 400 MG TABLET PO SCH (09:06)
[2017-09-28] MEDS: levoFLOXacin 250 MG TABLET PO SCH (09:06)
[2017-09-28] MEDS: guaiFENesin 600 MG TABLET PO SCH (09:06)
[2017-09-28] MEDS: FAMOTIDINE 20 MG TABLET PO SCH (09:06)
[2017-09-28] MEDS: predniSONE 20 MG TABLET PO SCH (09:06)
[2017-09-28] MEDS: SODIUM CHLORIDE FLUSH 0.9% 10 ML SYRINGE IVP SCH (09:07)
--- NOTE | 2017-09-28 09:12 | Discharge Plan ---
Discharge Plan Disposition: Home, Self Care Prescriptions: levoFLOXacin [Levaquin] 500 mg PO DAILY #7 tablet Diet: Regular Activity Restrictions: Activity as Tolerated Shower Restrictions: No Driving Restrictions: No Weight Bearing: Full Weight Additional Instructions or Follow Up instructions: Follow up with Dr. Douglas next week. No Smoking: If you smoke, Please STOP! Call for help. Follow-up with: Provider,Other [Primary Care Provider] -
--- NOTE | 2017-09-28 10:58 | DISCHARGE SUMMARY ---
Discharge Summary Admit Date: 09/24/17 Discharge Date: 09/28/17 Discharging Provider: Daina Ybarra DO Primary Care Provider: Karoline Douglas MD Code Status: Attempt Resuscitation Condition at Discharge: Fair Discharge Disposition: 01 Home, Self Care - DIAGNOSES Admission Diagnoses: 1. Acute respiratory failure with hypoxia 2. Sepsis 3. Community-acquired pneumonia 4. Asthma exacerbation 5. Acute kidney injury 6. Hyperglycemia 7. Hypothyroidism Discharge Diagnoses with Status of Each Condition: 1. Acute respiratory failure with hypoxia 2. Sepsis 3. Community-acquired pneumonia 4. Asthma exacerbation 5. Acute kidney injury 6. Hyperglycemia 7. Hypothyroidism - HPI History of Present Illness: Patient is a 57-year-old female with a past medical history significant for hypothyroidism and exercise-induced asthma who presented to the emergency department with a chief complaint of shortness of breath. The patient states that she was in her normal state of health until 09/19/2017 when she states she started feeling achy. She states that a few days earlier her was sick and was told he had a virus for which he received antibiotics. She states that over the week she progressed from feeling achy to having a cough with productive sputum to having a sore throat to getting nausea and chills. She states that although her improved she was not getting better. She states that her and her came to [facility] to their vacation home for the weekend. She states that all weekend she felt miserable. She states that she was weak could barely get out of bed. She states that she had nausea and vomiting. She states that her went back to [place] but she was so ill that she could not go back. She states that today she began experiencing shortness of breath and she got to a point where she could not breathe. She states that she was having wheezing, cough and increasing dyspnea. She states that she has never been admitted for an asthma exacerbation. She denies any chest pain, orthopnea, PND, increased lower extremity swelling. She states that at home she was having chills but did not take her temperature. She denies any abdominal pain, diarrhea, urinary urgency, urinary frequency or dysuria. She does admit to having decreased appetite. Patient denies any headaches, blurred vision, runny nose, dizziness, difficulty swallowing, palpitations, joint pain, joint swelling, back pain, neck stiffness , rashes, recent unintentional weight loss, night sweats or any focal neurologic deficits. On presentation to the emergency department the patient was initially afebrile but tachycardic with a heart rate of 120, borderline hypotensive with a blood pressure of 99/76 and tachypneic with respiratory distress. The patient was found to be hypoxic with oxygen saturation down to 90% on room air. While in the emergency department the patient developed a fever with a temperature of 39.6 and dropped her oxygen saturation down to 88%. The patient underwent routine lab work which showed no leukocytosis but slight lymphopenia and a creatinine of 1.2 with no previous baseline. The patient did appear to be significantly dehydrated and was given 4 L of IV fluid before she had any urine output. The patient had an influenza swab that was negative and a group A strep that was negative. The patient underwent a chest x-ray which was normal. The patient continued to have significant respiratory distress and was persistently hypoxic in the emergency department. She did appear to have wheezes on examination and perhaps had some asthma exacerbation. Given her hypoxia and borderline septic appearance the patient was admitted to the hospital for treatment of acute respiratory failure with hypoxia, asthma exacerbation and a clinical pneumonia. - HOSPITAL COURSE Hospital Course: The patient was admitted to medical surgical bed and placed on supplemental oxygen and IV antibiotics for her pneumonia. She was less responsive than normal her first 24 hours but returned to her baseline over the course of the next 2 days. She is now breathing easily on room air and yesterday when she was ambulated with respiratory therapy her oxygen saturation on room air got as low as 93% but no lower. She will be discharged home on Levaquin with instructions to follow-up with her primary care physician next week. - ALLERGIES Allergies/Adverse Reactions: Allergies Allergy/AdvReac Type Severity Reaction Status Date / Time Sulfa (Sulfonamide Allergy Rash Verified 09/24/17 11:26 Antibiotics) - MEDICATIONS Home Medications: Ambulatory Orders Medication Instructions Recorded Confirmed Levothyroxine Sodium [Synthroid] 112 mcg PO QDAC 09/25/17 09/25/17 Liothyronine [Cytomel] 5 mcg PO QDAC 09/25/17 09/25/17 levoFLOXacin [Levaquin] 500 mg PO DAILY #7 tablet 09/28/17 - PHYSICAL EXAM AT DISCHARGE General Appearance: positive: No acute distress, Alert Eyes Bilateral: positive: Normal inspection, PERRL, EOMI, No lid inflammation, Conjunctivae nml, No scleral icterus ENT: positive: ENT inspection nml, Pharynx nml, No signs of dehydration Neck: positive: Nml inspection, Thyroid nml, No JVD, Trachea midline. negative : Thyromegaly Respiratory: positive: Chest non-tender, No respiratory distress, Breath sounds nml. negative: Wheezes, Rales, Rhonchi Cardiovascular: positive: Regular rate & rhythm, No murmur, No gallop Peripheral Pulses: positive: 1+ Abdomen: positive: Non-tender, No organomegaly, Nml bowel sounds, No distention. negative: Guarding, Rebound Back: positive: Nml inspection. negative: CVA tenderness (R), CVA tenderness (L ) Skin: positive: Color nml, No rash, Warm, Dry. negative: Cyanosis Extremities: positive: Non-tender, Full ROM, Nml appearance, No pedal edema Neurologic/Psychiatric: positive: Oriented x3, CN's nml (2-12), Motor nml, Sensation nml, Mood/affect nml - LABS Result Diagrams: 09/27/17 04:40 09/27/17 04:40 - DIAGNOSTIC IMAGING Diagnostic Imaging Results: Final report reviewed Diagnostic Imaging Results Comments: EXAM: CHEST RADIOGRAPHY EXAM DATE: 09/24/2017 12:08 PM. CLINICAL HISTORY: Hypoxia. Tachycardia. Lethargy. COMPARISON: None. TECHNIQUE: Upright AP view. FINDINGS: Lungs/Pleura: No focal opacities evident. No pleural effusion. No pneumothorax. Mediastinum: Within exam limitations, the cardiomediastinal contour is normal. Other: Prior distal left clavicle resection. Small bone island in the proximal right humeral shaft. IMPRESSION: Normal single view chest. EXAM: Chest 1 View X-Ray DATE: 09/25/2017 9:08 AM CLINICAL HISTORY: F/U SOB, poss pneumonia COMPARISON: None. TECHNIQUE: Single view of the chest. FINDINGS: Lungs/Pleura: Left basilar infiltrate with trace effusion. No pneumothorax. Mediastinum: Within exam limitations, cardiomediastinal contour is normal. Other: None. IMPRESSION: New left basilar infiltrate and trace effusion. EXAM: CHEST RADIOGRAPHY EXAM DATE: 09/27/2017 06:30 AM. CLINICAL HISTORY: Reassess community-acquired pneumonia. COMPARISON: 09/25/2017. 09/24/2017. TECHNIQUE: 1 view. FINDINGS: Lungs/Pleura: Slight progression of left greater than right lower lobe airspace consolidation. No vascular congestion. No pneumothorax. Mediastinum: Heart size upper normal. Aorta is tortuous. Other: None. IMPRESSION: 1. Slight progression of left greater than right lower lobe airspace consolidation. - FOLLOW UP Follow Up: Follow up with Dr. Douglas next week. - TIME SPENT Time Spent in Discharge (Minutes): 40
[2017-09-28 11:43] VITALS: BP 144/87
== END 2017-09-28 12:03 | disposition home or self-care (01) | DRG 871 ==
LOC: ED 11:16 → MS2 17:53
PROVIDERS: ADMIT Internal Medicine; ATTEND Hospitalist
DX: A41.9 Sepsis, unspecified organism (principal); J96.01 Acute respiratory failure with hypoxia; J18.9 Pneumonia, unspecified organism; J45.21 Mild intermittent asthma with (acute) exacerbation; N17.9 Acute kidney failure, unspecified; R65.20 Severe sepsis without septic shock; R73.9 Hyperglycemia, unspecified; I10 Essential (primary) hypertension; E03.9 Hypothyroidism, unspecified; E86.0 Dehydration; E83.42 Hypomagnesemia; Z96.659 Presence of unspecified artificial knee joint
CPT/HCPCS: 36415; 71045; 80048; 80053; 81001; 81003; 83036; 83605; 83690; 83735; 84443; 85025; 87040; 87070; 87077; 87086; 87181; 87205; 87275; 87276; 87430; 94640; 94664; 94761; 96361; 96365; 99284; 99285

== ENCOUNTER 2019-10-11 10:07 | Outpatient (CLI) | payer OTHER | END 2019-10-11 23:59 | disposition EMS.NT | LOC: EMS 10:07 | PROVIDERS: ATTEND Surgery | DX: S61.512A Laceration without foreign body of left wrist, initial encounter (principal); W26.8XXA Contact with other sharp object(s), not elsewhere classified, initial encounter; Y92.009 Unspecified place in unspecified non-institutional (private) residence as the place of occurrence of the external cause ==

== ENCOUNTER 2019-10-11 11:00 | Emergency (ER) | payer OTHER ==
--- NOTE | 2019-10-11 11:29 | ED Physician Documentation ---
PD HPI UPPER EXT INJURY - Stated complaint Stated Complaint: RT WRIST LAC - Chief complaint Chief Complaint: Laceration - History obtained from History obtained from: Patient - History of Present Illness Location: Right, Wrist Type of injury: Laceration (from broken piece of ceramic vase) Where injury occurred: Home (the vase was broken and she rubbed hand against it by accident. It did not break at the time. She denies small pieces nor concern of FB.) Timing - onset: Today Timing - details: Abrupt onset, Still present Worsened by: Moving, Palpating Associated symptoms: Other (it bled well on time of injury. Is minimally bleeding now.). No: Weakness, Numbness Contributing factors: No: Anticoagulated Similar symptoms before: Has not had sx before Review of Systems Constitutional: denies: Fever, Chills Nose: denies: Rhinorrhea / runny nose, Congestion Throat: denies: Sore throat Respiratory: denies: Cough Skin: reports: Laceration (s) Neurologic: denies: Focal weakness, Numbness PD PAST MEDICAL HISTORY - Past Medical History Cardiovascular: None Respiratory: Asthma Neuro: None Endocrine/Autoimmune: HyPOthyroidism GI: None HIGH RISK OB: None : None HEENT: None Psych: None Musculoskeletal: None Derm: None - Past Surgical History Past Surgical History: Yes Ortho: Other - Present Medications Home Medications: Ambulatory Orders Medication Instructions Recorded Confirmed Levothyroxine Sodium [Synthroid] 112 mcg PO QDAC 09/25/17 09/25/17 Liothyronine [Cytomel] 5 mcg PO QDAC 09/25/17 09/25/17 levoFLOXacin [Levaquin] 500 mg PO DAILY #7 tablet 09/28/17 - Allergies Allergies/Adverse Reactions: Allergies Allergy/AdvReac Type Severity Reaction Status Date / Time Sulfa (Sulfonamide Allergy Rash Verified 10/11/19 11:11 Antibiotics) - Social History Does the pt smoke?: No Smoking Status: Never smoker Does the pt drink ETOH?: Yes Does the pt have substance abuse?: No - Immunizations Immunizations are current?: Yes - POLST Patient has POLST: No POLST Status: Full Code PD ED PE NORMAL - Vitals Vital signs reviewed: Yes - General General: Alert and oriented X 3, No acute distress, Well developed/nourished - Derm Derm: Normal color, Warm and dry - Extremities Extremities: Other (right dorsal wrist over the radial side just to the ulnar side of the snuffbox, with 1.5 cm laceration with slight bleeding. It appears to involve superficial vein on dorsum of hand. Otherwise just down to fatty tissue and no FB. ) - Neuro Neuro: Alert and oriented X 3, No motor deficit, No sensory deficit Results - Vitals Vitals: Vital Signs - 24 hr 10/11/19 10/11/19 11:12 12:19 Temperature 36.7 C 36.7 C Heart Rate 82 60 Respiratory 16 16 Rate Blood Pressure 132/73 H 120/68 O2 Saturation 100 100 Oxygen O2 Source Room air Procedures - Laceration (location) dorsal right wrist Length in cm: 1.5 Wound type: Linear, Into subcut fat, Clean Neurovascular status: Sensory intact, Motor intact Tendon involvement: Tendon intact. No: Tendon Injury Anesthesia: Lidocaine 1% with epi Wound Preparation: Irrigated copiously NS, Wound explored, To the base. No: FB identified Skin layer closure: Nylon, Running, Size #-0 - enter number (4), Sutures - enter # (5) Other: Patient tolerated well, No complications, Neurovascular intact, Dressing applied, Tetanus UTD Complexity: Simple PD MEDICAL DECISION MAKING - ED course Complexity details: considered differential, d/w patient Departure - Departure Disposition: 01 Home, Self Care Clinical Impression: Laceration of right wrist Qualifiers: Encounter type: initial encounter Qualified Code(s): S61.511A - Laceration without foreign body of right wrist, initial encounter Condition: Stable Record reviewed to determine appropriate education?: Yes Instructions: ED Laceration Hand Comments: It is okay to wash and shower. Clean off the wound twice a day with soap and water, or peroxide and water. Apply some antibiotic ointment to it to keep it moist. Also to watch for signs of infection such as purulence, redness or increasing pain. Return to your primary care or the ER at the specified time for suture removal. Suture removal 8 to 10 days. Tylenol ibuprofen as needed for pains. Activity as tolerated. Discharge Date/Time: 10/11/19 12:24
[2019-10-11] MEDS ORDERED: ACETAMINOPHEN 325 MG TABLET PO STA (12:05)
[2019-10-11 12:20] VITALS: BP 120/68
== END 2019-10-11 12:24 | disposition home or self-care (01) ==
LOC: ED 11:00
DX: S61.511A Laceration without foreign body of right wrist, initial encounter (principal); W26.8XXA Contact with other sharp object(s), not elsewhere classified, initial encounter; Y92.009 Unspecified place in unspecified non-institutional (private) residence as the place of occurrence of the external cause
CPT/HCPCS: 12001; 99282; A9270